=== PATIENT | female | born 1975 | race African-American/Black ===

== ENCOUNTER 2020-11-03 00:03 | Inpatient (IN) ==
[2020-11-03] MEDS ORDERED: NICOTINE 21 MG/24 HR PATCH TRANSDERM PRN (01:36)
[2020-11-03] MEDS ORDERED: DEXTROSE 50% 25 GM/50 ML VIAL IV PRN (01:36)
[2020-11-03] MEDS ORDERED: GLUCAGON 1 MG VIAL IM PRN (01:36)
[2020-11-03] MEDS ORDERED: MORPHINE 4 MG/1 ML VIAL IV PRN (01:36)
[2020-11-03] MEDS ORDERED: diphenhydrAMINE CAP 25 MG CAPSULE PO PRN (01:36)
[2020-11-03] MEDS ORDERED: hydrALAZINE 20 MG/1 ML VIAL IV PRN (01:36)
[2020-11-03 02:09] LABS: Basophils % 0.4 % (0.0-0.8); Eosinophils # 0.2 10*3/uL (0.0-0.87); Eosinophils % 3.5 % (0.00-10.9); Hematocrit 38.1 VOL% (35.7-47.0); Hemoglobin 12.2 GM/DL (12.0-16.0); Immature Granulocytes % 0.4 %; Immature Granulocytes Absolute 0.02 #; Lymphocytes # 2.4 10*3/uL (1.4-4.0); Lymphocytes % 43.7 % (21.3-54.2); Mean Corpuscular Volume 88.2 FL (87-102); Mean Platelet Volume 10.2 FL (9.6-12.0); Monocytes % 8.1 % (1.7-12.7); Neutrophils % 43.9 % (38.7-73.9); Platelet Count 255 T/CUMM (130-400); Red Blood Count 4.32 MC/CUMM (3.8-5.5); Red Cell Distribution Width 14.2 % (9.3-17.3); White Blood Count 5.4 T/CUMM (4-12)
[2020-11-03 02:31] LABS: Albumin 3.6 G/DL (3.4-5.0); Bilirubin,Total 5.6 MG/DL (0.2-1.0); Osmolality,Calculated 271.7 MOS/KG (273-304); Risk Ratio 3.31; Total Protein 6.8 G/DL (5.0-7.5); VLDL CHOLESTEROL 19.2 MG/DL
[2020-11-03 02:32] LABS: Albumin 3.6 G/DL (3.4-5.0); Bilirubin,Direct 4.8 MG/DL (0.0-0.20); Bilirubin,Indirect 0.7 MG/DL (0.0-1.0); Bilirubin,Total 5.5 MG/DL (0.2-1.0); Total Protein 6.9 G/DL (5.0-7.5)
[2020-11-03 03:11] LABS: Hepatitis B Core IgM Quant < 0.05 Index; Hepatitis B Surface Ag Quant < 0.10 Index; Hepatitis B Surface Ag Result Non-Reactive (NonReactive); Hepatitis C Virus Ab Quant 0.06 Index; Hepatitis C Virus Ab Result Non-Reactive (NonReactive)
[2020-11-03] MEDS ORDERED: POTASSIUM CHLORIDE 20 MEQ TABLET PO ONE (06:26)
[2020-11-03] MEDS: ONDANSETRON 4 MG/2 ML VIAL IV PRN (06:59)
[2020-11-03] MEDS ORDERED: INSULIN REGULAR 100 UNIT/ML SUBCUT SCH (07:30)
[2020-11-03] MEDS: POTASSIUM CHLORIDE RIDER 10 MEQ in PREMIX 1 EACH IV PRN ×5 (07:45→19:09)
[2020-11-03] MEDS: LISINOPRIL/HCTZ 20-25 MG TABLET PO SCH (20:59)
[2020-11-03] MEDS: DEXT 5% NACL 0.9% KCL 20 MEQ 20 MEQ/1,000 ML BAG IV SCH (21:57)
[2020-11-04] MEDS: DEXT 5% NACL 0.9% KCL 20 MEQ 20 MEQ/1,000 ML BAG IV SCH ×2 (02:42→16:19)
[2020-11-04 05:52] LABS: Basophils % 0.2 % (0.0-0.8); Eosinophils # 0.1 10*3/uL (0.0-0.87); Eosinophils % 1.6 % (0.00-10.9); Hematocrit 37.4 VOL% (35.7-47.0); Hemoglobin 12.2 GM/DL (12.0-16.0); Immature Granulocytes % 0.4 %; Immature Granulocytes Absolute 0.02 #; Lymphocytes # 1.6 10*3/uL (1.4-4.0); Lymphocytes % 32.7 % (21.3-54.2); Mean Corpuscular HGB Conc 32.6 GM/DL (32-36); Mean Corpuscular Volume 88.2 FL (87-102); Mean Platelet Volume 10.5 FL (9.6-12.0); Monocytes % 9.2 % (1.7-12.7); Neutrophils % 55.9 % (38.7-73.9); Platelet Count 230 T/CUMM (130-400); Red Blood Count 4.24 MC/CUMM (3.8-5.5); Red Cell Distribution Width 14.4 % (9.3-17.3); White Blood Count 4.9 T/CUMM (4-12)
[2020-11-04 06:30] LABS: Albumin 3.2 G/DL (3.4-5.0); Calcium 8.8 MG/DL (8.5-10.1); Osmolality,Calculated 264.2 MOS/KG (273-304); Potassium 3.1 MMOL/L (3.5-5.1); Total Protein 6.4 G/DL (5.0-7.5)
[2020-11-04] MEDS ORDERED: POTASSIUM CHLORIDE 20 MEQ TABLET PO ONE (10:48)
[2020-11-04] MEDS: PIPERACILLIN/TAZOBACTAM 3,375 MG in SODIUM CHLORIDE 0.9% 100 ML IV SCH ×2 (11:26→19:08)
[2020-11-04] MEDS ORDERED: ALBUTEROL/IPRATROPIUM 3 ML NEB RESP TX PRN (19:16)
[2020-11-04] MEDS: EZETIMIBE 10 MG TABLET PO SCH (21:05)
[2020-11-04] MEDS: LISINOPRIL/HCTZ 20-25 MG TABLET PO SCH (21:06)
[2020-11-05] MEDS: PIPERACILLIN/TAZOBACTAM 3,375 MG in SODIUM CHLORIDE 0.9% 100 ML IV SCH ×3 (03:37→19:40)
[2020-11-05 04:26] LABS: Basophils % 0.5 % (0.0-0.8); Eosinophils # 0.1 10*3/uL (0.0-0.87); Eosinophils % 3.6 % (0.00-10.9); Hematocrit 36.8 VOL% (35.7-47.0); Hemoglobin 12.2 GM/DL (12.0-16.0); Immature Granulocytes % 0.3 %; Immature Granulocytes Absolute 0.01 #; Lymphocytes # 1.6 10*3/uL (1.4-4.0); Mean Corpuscular HGB Conc 33.2 GM/DL (32-36); Mean Platelet Volume 10.9 FL (9.6-12.0); Monocytes % 8.9 % (1.7-12.7); Neutrophils % 45.7 % (38.7-73.9); Platelet Count 227 T/CUMM (130-400); Red Blood Count 4.23 MC/CUMM (3.8-5.5); Red Cell Distribution Width 14.4 % (9.3-17.3); White Blood Count 3.9 T/CUMM (4-12)
[2020-11-05 04:54] LABS: Albumin 3.1 G/DL (3.4-5.0); Bilirubin,Total 5.4 MG/DL (0.2-1.0); Osmolality,Calculated 272.7 MOS/KG (273-304); Potassium 2.8 MMOL/L (3.5-5.1); Total Protein 6.5 G/DL (5.0-7.5)
[2020-11-05] MEDS: POTASSIUM CHLORIDE RIDER 10 MEQ in PREMIX 1 EACH IV PRN (05:22)
[2020-11-05] MEDS: DEXT 5% NACL 0.9% KCL 20 MEQ 20 MEQ/1,000 ML BAG IV SCH ×2 (05:58→18:50)
[2020-11-05] MEDS ORDERED: POTASSIUM CHLORIDE 20 MEQ TABLET PO PRN (08:20)
[2020-11-05] MEDS ORDERED: POTASSIUM CHLORIDE 20 MEQ TABLET PO ONE (10:07)
[2020-11-05] MEDS: lisinopriL 20 MG TABLET PO SCH (11:04)
[2020-11-05] MEDS: POLYETHYLENE GLYCOL POWDER 17 GM PACK PO SCH (20:47)
[2020-11-05] MEDS: DOCUSATE SODIUM 100 MG CAPSULE PO SCH (20:47)
[2020-11-05] MEDS: EZETIMIBE 10 MG TABLET PO SCH (20:47)
[2020-11-05] MEDS: POTASSIUM CHLORIDE 20 MEQ TABLET PO SCH (20:47)
[2020-11-05] MEDS ORDERED: POTASSIUM CHLORIDE 20 MEQ/15 ML UDCUP PER TUBE PRN (21:50)
[2020-11-06] MEDS: DEXT 5% NACL 0.9% KCL 20 MEQ 20 MEQ/1,000 ML BAG IV SCH ×2 (00:55→19:26)
[2020-11-06] MEDS: PIPERACILLIN/TAZOBACTAM 3,375 MG in SODIUM CHLORIDE 0.9% 100 ML IV SCH ×2 (03:25→20:34)
[2020-11-06 05:55] LABS: Basophils % 0.3 % (0.0-0.8); Eosinophils # 0.2 10*3/uL (0.0-0.87); Eosinophils % 4.8 % (0.00-10.9); Hematocrit 38.3 VOL% (35.7-47.0); Hemoglobin 12.1 GM/DL (12.0-16.0); Immature Granulocytes % 0.3 %; Immature Granulocytes Absolute 0.01 #; Lymphocytes # 1.7 10*3/uL (1.4-4.0); Lymphocytes % 42.2 % (21.3-54.2); Mean Corpuscular HGB Conc 31.6 GM/DL (32-36); Mean Corpuscular Volume 89.5 FL (87-102); Mean Platelet Volume 11.2 FL (9.6-12.0); Monocytes % 9.8 % (1.7-12.7); Neutrophils % 42.6 % (38.7-73.9); Platelet Count 222 T/CUMM (130-400); Red Blood Count 4.28 MC/CUMM (3.8-5.5); Red Cell Distribution Width 14.2 % (9.3-17.3)
[2020-11-06 06:13] LABS: Albumin 2.9 G/DL (3.4-5.0); Bilirubin,Total 2.7 MG/DL (0.2-1.0); Calcium 8.6 MG/DL (8.5-10.1); Osmolality,Calculated 270.7 MOS/KG (273-304); Potassium 3.3 MMOL/L (3.5-5.1); Total Protein 6.2 G/DL (5.0-7.5)
[2020-11-06] MEDS: POTASSIUM CHLORIDE 20 MEQ TABLET PO SCH (08:29)
[2020-11-06] MEDS: lisinopriL 20 MG TABLET PO SCH (08:29)
[2020-11-06] MEDS: LACTATED RINGERS 1,000 ML IV SCH (09:38)
[2020-11-06] MEDS ORDERED: INDOMETHACIN SUPP 50 MG SUPP RECTAL ONE ×2 (09:40→10:10)
[2020-11-06] MEDS ORDERED: LIDOCAINE 2% 5 ML VIAL ONE ×2 (09:44→14:16)
[2020-11-06] MEDS ORDERED: propofoL 200 MG/20 ML VIAL IV ONE ×2 (09:44→14:16)
[2020-11-06] MEDS ORDERED: ONDANSETRON 4 MG/2 ML VIAL ONE ×2 (09:44→15:11)
[2020-11-06] MEDS ORDERED: SUCCINYLCHOLINE 200 MG/10 ML VIAL ONE (09:44)
[2020-11-06] MEDS ORDERED: fentaNYL 100 MCG/2 ML VIAL ONE ×4 (09:45→15:31)
[2020-11-06] MEDS ORDERED: MIDAZOLAM 2 MG/2 ML VIAL ONE ×2 (09:45→14:16)
[2020-11-06] MEDS ORDERED: MAGNESIUM SULF RIDER 2 GM in PREMIX 1 EACH IV ONE (10:00)
[2020-11-06] MEDS ORDERED: PHENYLEPHRINE 1 MG/10 ML SYRINGE IV ONE ×3 (10:04→15:18)
[2020-11-06] MEDS ORDERED: SEVOFLURANE 1 UNIT/15 MINUTE INH ONE ×8 (10:04→17:10)
[2020-11-06] MEDS ORDERED: DEXAMETHASONE 4 MG/1 ML VIAL ONE ×4 (10:04→15:27)
[2020-11-06] MEDS ORDERED: ESMOLOL 100 MG/10 ML VIAL IV ONE (10:33)
[2020-11-06] MEDS ORDERED: ACETAMINOPHEN 325 MG TABLET PO PRN (12:11)
[2020-11-06 12:40] LABS: Basophils % 0.2 % (0.0-0.8); Eosinophils % 0.7 % (0.00-10.9); Hemoglobin 13.4 GM/DL (12.0-16.0); Immature Granulocytes % 0.3 %; Immature Granulocytes Absolute 0.02 #; Lymphocytes # 1.1 10*3/uL (1.4-4.0); Lymphocytes % 18.7 % (21.3-54.2); Mean Corpuscular HGB Conc 31.9 GM/DL (32-36); Mean Corpuscular Volume 90.3 FL (87-102); Mean Platelet Volume 11.3 FL (9.6-12.0); Monocytes % 3.3 % (1.7-12.7); Neutrophils % 76.8 % (38.7-73.9); Platelet Count 203 T/CUMM (130-400); Red Blood Count 4.65 MC/CUMM (3.8-5.5); Red Cell Distribution Width 14.4 % (9.3-17.3); White Blood Count 6.1 T/CUMM (4-12)
[2020-11-06 12:51] LABS: PT Patient Result 11.2 SECS (9.8-11.9)
[2020-11-06] MEDS: POLYETHYLENE GLYCOL POWDER 17 GM PACK PO SCH ×2 (13:30→20:38)
[2020-11-06] MEDS: DOCUSATE SODIUM 100 MG CAPSULE PO SCH ×2 (13:30→20:34)
[2020-11-06] MEDS ORDERED: TISSUE ADHESIVE 1 EACH APPLICATOR TOP ONE (13:54)
[2020-11-06] MEDS ORDERED: ROCURONIUM 50 MG/5 ML VIAL IV ONE (14:16)
[2020-11-06] MEDS ORDERED: ceFAZolin 1,000 MG VIAL ONE (15:18)
[2020-11-06] MEDS ORDERED: KETOROLAC 30 MG/1 ML VIAL ONE (15:22)
[2020-11-06] MEDS ORDERED: NEOSTIGMINE 10 MG/10 ML VIAL ONE (16:45)
[2020-11-06] MEDS ORDERED: GLYCOPYRROLATE 0.4 MG/2 ML VIAL ONE (16:45)
[2020-11-06] MEDS ORDERED: HYDROmorphone 2 MG/1 ML VIAL ONE (16:48)
[2020-11-06] MEDS ORDERED: LACTATED RINGERS 1,000 ML IV ONE (17:10)
[2020-11-06] MEDS: HYDROmorphone 2 MG/1 ML VIAL IV PRN (19:00)
[2020-11-06] MEDS: EZETIMIBE 10 MG TABLET PO SCH (20:34)
[2020-11-07] MEDS: PIPERACILLIN/TAZOBACTAM 3,375 MG in SODIUM CHLORIDE 0.9% 100 ML IV SCH ×2 (04:15→14:13)
[2020-11-07 05:59] LABS: Basophils % 0.1 % (0.0-0.8); Hematocrit 34.8 VOL% (35.7-47.0); Hemoglobin 11.5 GM/DL (12.0-16.0); Immature Granulocytes % 0.4 %; Immature Granulocytes Absolute 0.03 #; Lymphocytes # 1.3 10*3/uL (1.4-4.0); Lymphocytes % 15.4 % (21.3-54.2); Mean Corpuscular Volume 87.2 FL (87-102); Mean Platelet Volume 11.4 FL (9.6-12.0); Monocytes % 6.7 % (1.7-12.7); Neutrophils % 77.4 % (38.7-73.9); Platelet Count 218 T/CUMM (130-400); Red Blood Count 3.99 MC/CUMM (3.8-5.5); Red Cell Distribution Width 14.1 % (9.3-17.3); White Blood Count 8.5 T/CUMM (4-12)
[2020-11-07 06:18] LABS: Albumin 2.9 G/DL (3.4-5.0); Bilirubin,Total 1.9 MG/DL (0.2-1.0); Calcium 8.9 MG/DL (8.5-10.1); Potassium 3.4 MMOL/L (3.5-5.1); Total Protein 6.2 G/DL (6.4-8.2)
[2020-11-07] MEDS: LACTATED RINGERS 1,000 ML IV SCH (07:38)
[2020-11-07] MEDS ORDERED: POTASSIUM CHLORIDE 20 MEQ TABLET PO SCH (09:00)
[2020-11-07] MEDS ORDERED: lisinopriL 10 MG TABLET PO SCH (09:00)
[2020-11-07] MEDS: POLYETHYLENE GLYCOL POWDER 17 GM PACK PO SCH (09:03)
[2020-11-07] MEDS: ONDANSETRON 4 MG/2 ML VIAL IV PRN (09:03)
[2020-11-07] MEDS: HYDROmorphone 2 MG/1 ML VIAL IV PRN (09:03)
[2020-11-07] MEDS: DOCUSATE SODIUM 100 MG CAPSULE PO SCH (09:04)
[2020-11-07 11:29] VITALS: BP 132/73
[2020-11-07] MEDS: DEXT 5% NACL 0.9% KCL 20 MEQ 20 MEQ/1,000 ML BAG IV SCH (14:13)
== END 2020-11-07 14:50 | disposition home or self-care (01) | DRG 419 ==
LOC: N.3E 00:50 → SUATTDRO 00:50
PROVIDERS: ADMIT Internal Medicine; ATTEND Family Medicine
PROC: ERCPWSP (ICD-10-PCS; 2020-11-06 07:05)
PROC: LAPCHOL (2020-11-06 15:01)